=== PATIENT | female | born 1950 | race Caucasian/White ===

== ENCOUNTER 2016-05-12 12:45 | Emergency (ER) | payer SELFPAY ==
[~2016-05-12] VITALS: Ht 160 cm; Wt 68.5 kg
[2016-05-12 12:49] VITALS: Ht 160 cm; Wt 68.5 kg
[2016-05-12] MEDS ORDERED: SOD CHLORIDE 0.9% 500 ML IV STA (19:03)
[2016-05-12] MEDS ORDERED: ACETAMINOPHEN 325 MG TAB PO ONE (19:30)
[2016-05-12] MEDS ORDERED: morphine 2 MG INJ IV ONE (19:30)
[2016-05-12 19:46] LABS: ADD UMIC YES; URINE BILIRUBIN (Dip) NEGATIVE (NEGATIVE); URINE BLOOD (Dip) 3+ (NEGATIVE); URINE COLOR LT. YELLOW (YELLOW); URINE GLUCOSE (Dip) NEGATIVE (NEGATIVE); URINE KETONES (Dip) NEGATIVE (NEGATIVE); URINE LEUKOCYTE ESTERASE (Dip) 1+ (NEGATIVE); URINE NITRITE (Dip) NEGATIVE (NEGATIVE); URINE TOTAL PROTEIN (Dip) NEGATIVE (NEGATIVE); URINE UROBILINOGEN (Dip) 0.2 E.U./dL (0.1-1.0)
--- NOTE | 2016-05-12 19:46 | RADRPT ---
PROCEDURE: CT Brain without contrast. CLINICAL INDICATION: Headaches status post fall TECHNIQUE: A CT of the brain was performed on a GE ProspXpeAdhere2Care 64-slice CT scanner utilizing axial imaging from the skull base through the vertex without IV contrast. Multiplanar reformatted images were made. Images were reviewed on a PACS workstation. The CTDIvol is 45.01 mGy and the DLP is 720 .03 mGycm. One of the following 3 dose reduction techniques were used: Automated exposure control; adjustment of the mA and/or kV according to patient size; or use of iterative reconstruction technique. COMPARISON: None FINDINGS: There is no intracranial hemorrhage, mass effect, or midline shift. No extra-axial fluid collection is seen. The ventricles and sulci are normal in size and configuration. The density of the brain is normal, and the hartley white matter differentiation appears well-preserved. Minimal vascular calcific ations are present of the bilateral intracranial internal carotid arteries. The visualized scalp and calvarium are normal. The bilateral orbits are normal. The bilateral para nasal sinuses, mastoid air cells and middle ear cavities are clear. IMPRESSION: 1. No evidence of acute intracranial hemorrhage, infarcts, or acute intracranial pathology. 2. Minimal atherosclerotic vascular disease RPTAT: HDC .Maritza Washington MD, MD Date Time Electronically viewed and signed by .Maritza Washington MD, on 05/12/2016 19:46 .C/
--- NOTE | 2016-05-12 19:52 | RADRPT ---
PROCEDURE: XR Chest. CLINICAL INDICATION: Chest pain. TECHNIQUE: Single frontal view. COMPARISON: None. FINDINGS: The lungs are clear. The heart size is normal. There is no pleural effusion. There is no pneumothorax. IMPRESSION: 1. Normal chest radiograph. RPTAT: QQ .Ruben Bocanegra MD, Date Time Electronically viewed and signed by .Ruben Bocanegra MD, on 05/12/2016 19:52 .R/
--- NOTE | 2016-05-12 19:53 | RADRPT ---
PROCEDURE: Left wrist radiographs. CLINICAL INDICATION: Trauma due to a fall. Left wrist pain. TECHNIQUE: Four views. Frontal, lateral, and obliques. COMPARISON: No prior studies are available for comparison. FINDINGS: There is an acute minimally displaced transverse fracture through the distal metaphysis of the radiu s. There is no other fracture and there is no dislocation. There is diffuse soft tissue swelling overlying the fracture. Articular surfaces are intact. There is no lytic or blastic lesion. There is no radiopaque foreign body. IMPRESSION: 1. Acute mildly displaced transverse fracture through the distal metaphysis of the radius. 2. Overlying soft tissue swelling. 3. Otherwise normal images of the left wrist. RPTAT: QQ .Ruben Bocanegra MD, MD Date Time Electronically viewed and signed by .Ruben Bocanegra MD, on 05/12/2016 19:53 .R/
[2016-05-12 19:56] LABS: BACTERIA,URINE FEW
[2016-05-12 20:12] LABS: BASOPHILS % 0.5 % (0.0-2.0); EOSINOPHILS # 0.1 10^3/ul (0.0-0.5); EOSINOPHILS % 0.9 % (0.0-7.0); HEMATOCRIT 44.3 % (37.0-47.0); HEMOGLOBIN 15.2 g/dl (12.0-16.0); LYMPHOCYTES # 2.1 10^3/ul (0.8-2.9); LYMPHOCYTES % 31.6 % (15.0-51.0); MEAN CORPUSCULAR HEMOGLOBIN 30.6 pg (29.0-33.0); MEAN CORPUSCULAR HGB CONC 34.3 g/dl (32.0-37.0); MEAN CORPUSCULAR VOLUME 89.3 fl (82.0-101.0); MEAN PLATELET VOLUME 7.5 fl (7.4-10.4); MONOCYTE # 0.6 10^3/ul (0.3-0.9); MONOCYTES % 8.8 % (0.0-11.0); NEUTROPHIL # 3.9 10^3/ul (1.6-7.5); NEUTROPHILS % 58.2 % (39.0-77.0); PLATELET COUNT 273 10^3/UL (140-440); RED BLOOD COUNT 4.97 10^6/ul (4.20-5.40); RED CELL DISTRIBUTION WIDTH 13.2 % (11.5-14.5); UNCORRECTED WBC 6.7 10^3/ul (4.8-10.8); WHITE BLOOD COUNT 6.7 10^3/ul (4.8-10.8)
[2016-05-12 20:17] LABS: CONDITION 1
[2016-05-12 20:19] LABS: CHLORIDE 103 mmol/L (97-110); SODIUM 144 mmol/L (135-144)
[2016-05-12 20:20] LABS: PROTIME 13.2 Sec (12.2-14.2)
[2016-05-12 20:21] LABS: PARTIAL THROMBOPLASTIN TIME 26.5 Sec (25.0-35.0)
[2016-05-12 20:22] LABS: ANION GAP 16 (8-16); CARBON DIOXIDE 29 mmol/L (21-31); CREATININE 0.58 mg/dl (0.44-1.00)
[2016-05-12 20:23] LABS: BLOOD UREA NITROGEN 14 mg/dl (7-20); CALCIUM 9.4 mg/dl (8.4-10.2); GLUCOSE 110 mg/dl (70-220)
[2016-05-12 20:36] LABS: TROPONIN-I < 0.012 ng/ml (0.00-0.12)
[2016-05-12] MEDS ORDERED: HYDR-906 PO (21:01)
[2016-05-12] MEDS ORDERED: NITR-58 PO (21:01)
[2016-05-12] MEDS ORDERED: IBUP-1542 PO (21:01)
[2016-05-12] MEDS ORDERED: CIPR500T4 PO (21:01)
--- NOTE | 2016-05-12 21:18 | ERD ---
ER Documentation Chief Complaint Date/Time DATE: 05/12/16 TIME: 21:04 Chief Complaint CAME IN VIA INTAKE DUE TO FALL 3 DAYS AGO WITH CONFUSION AND WRIST PAIN HPI This 66-year-old female presents emergency room with her daughter for a fall 3 days ago in which she slipped on water in the rain and landed with her left wrist extended and hit the back of her head. She has no neck pain but she does have pain in the posterior scalp region as well as wrist pain when she tries to use her wrist at all. Yesterday she felt somewhat dizzy and lightheaded. Today she does not have any symptoms except for the wrist pain and a slight head pain. She is not taking any blood thinners except for an 81 mg aspirin. She has not had any fevers chills or dysuria lately. No chest pain or shortness of breath ROS All systems reviewed and are negative except as per history of present illness. Medications Home Meds Active Scripts Nitrofurantoin Monohyd Macrocr* (Macrobid*) 100 Mg Capsr, 100 MG PO BID, #6 CAP Prov:MECHEHARRIET DO 05/12/16 Ciprofloxacin Hcl* (Ciprofloxacin Hcl*) 500 Mg Tablet, 500 MG PO BID for 7 Days , TAB Prov:MECHEHARRIET DO 05/12/16 Ibuprofen* (Motrin*) 600 Mg Tab, 600 MG PO Q6H Y for PAIN AND OR ELEVATED TEMP, #30 TAB Prov:MECHEHARRIETERVIN COUGHLIN 05/12/16 Hydrocodone/Acetaminophen (Goodwell 5-325 Tablet) 1 Each Tablet, 1 EACH PO Q6 for SEVERE PAIN LEVEL 7-10, #7 TAB Prov:MECHEHARRIETERVIN COUGHLIN 05/12/16 PMhx/Soc History of Surgery: Yes (right knee sx) Anesthesia Reaction: No Hx Neurological Disorder: No Hx Respiratory Disorders: No Hx Cardiac Disorders: Yes (HTN) Hx Psychiatric Problems: No Hx Miscellaneous Medical Probl: No Hx Alcohol Use: No Hx Substance Use: No Hx Tobacco Use: No Smoking Status: Never smoker Physical Exam Vitals Vital Signs Date Time Temp Pulse Resp B/P Pulse Ox O2 Delivery O2 Flow Rate FiO2 05/12/16 12:49 99.8 87 18 178/88 95 Physical Exam Const: [] No distress Head: Slight swelling in the area of the right occiput with mild tenderness, no deformities or bleeding. Eyes: Normal Conjunctiva, EOMI, PERRLA ENT: Normal External Ears, Nose and Mouth. Neck: Full range of motion..~ No meningismus. Resp: Clear to auscultation bilaterally Cardio: Regular rate and rhythm, no murmurs Abd: Soft, non tender, non distended. Normal bowel sounds Skin: No petechiae or rashes Back: No midline or flank tenderness Ext: No cyanosis, some swelling of left wrist with tenderness to palpation about the dorsal mid wrist, no snuffbox tenderness, purpuric discoloration. Distal pulses and capillary refill intact. Neur: Awake and alert and oriented 3, no focal deficits, cranial nerves II through XII intact, normal gait Psych: Normal Mood and Affect Result Diagram: 05/12/16194905/12/161949 Results 24 hrs Laboratory Tests Test 05/12/16 19:31 05/12/16 19:50 Urine Bacteria FEW Urine Bilirubin NEGATIVE Urine Clarity CLEAR Urine Color LT. YELLOW Urine Epithelial Cells FEW Urine Glucose NEGATIVE% Urine Hemoglobin 3+ Urine Ketones NEGATIVE Urine Leukocyte Esterase 1+ Urine Microscopic RBC 10-25/HPF Urine Microscopic WBC 2-5/HPF Urine Nitrite NEGATIVE Urine Specific [place] 1.025 Urine Total Protein NEGATIVE Urine Urobilinogen 0.2 E.U./dL Urine pH 6.0 Activated Partial Thromboplast Time 26.5Sec Anion Gap 16 Basophils # 0.010^3/ul Basophils % 0.5% Blood Urea Nitrogen 14mg/dl Calcium Level 9.4mg/dl Carbon Dioxide Level 29mmol/L Chloride Level 103mmol/L Creatinine 0.58mg/dl Eosinophils # 0.110^3/ul Eosinophils % 0.9% Glucose Level 110mg/dl Hematocrit 44.3% Hemoglobin 15.2g/dl INR International Normalized Ratio 1.00 Lymphocytes # 2.110^3/ul Lymphocytes % 31.6% Mean Corpuscular Hemoglobin 30.6pg Mean Corpuscular Hemoglobin Concent 34.3g/dl Mean Corpuscular Volume 89.3fl Mean Platelet Volume 7.5fl Monocytes # 0.610^3/ul Monocytes % 8.8% Neutrophils # 3.910^3/ul Neutrophils % 58.2% Nucleated Red Blood Cells # 0.010^3/ul Nucleated Red Blood Cells % 0.0/100WBC Platelet Count 85461^3/UL Potassium Level 4.0mmol/L Prothrombin Time 13.2Sec Prothrombin Time Ratio 1.0 Red Blood Count 4.9710^6/ul Red Cell Distribution Width 13.2% Sodium Level 144mmol/L Troponin I < 0.012ng/ml White Blood Count 6.710^3/ul Current Medications Medications (Trade) Dose Ordered Sig/Jason Route PRN Reason Start Time Stop Time Status Last Admin Dose Admin Sodium Chloride (NS) 500 ml @ 500 mls/hr Q1H STAT IV 05/12/16 19:03 05/12/16 20:02 DC Acetaminophen (Tylenol Tab) 650 mg ONCE ONCE PO 05/12/16 19:30 05/12/16 19:31 DC 05/12/16 20:59 Morphine Sulfate (morphine) 2 mg ONCE ONCE IV 05/12/16 19:30 05/12/16 19:31 DC Procedures/MDM Mechanical fall and 66-year-old female with head injury and intra-articular distal radius fracture. Patient also has urinary tract infection which may explain her dizziness and lightheadedness. Head CT is negative for hemorrhage and the patient is alert oriented virtually asymptomatic today except for fracture and fully ambulatory. C-spine is cleared through Nexus criteria. She was given Tylenol for pain in the emergency room. I am going to discharge her with Goodwell for severe pain as well as ibuprofen, orthopedic follow-up through her primary care doctor and strict return precautions to the ER for any concerning changes. No signs of serious infection. EKG interpretation: Normal sinus rhythm rate of 76, normal axis, no ST or T- wave changes concerning for acute ischemia. security monitor interpretation: Normal sinus rhythm without arrhythmia Chest x-ray interpretation: No acute process, no widened mediastinum or pneumothorax no hemothorax, no acute fractures Brain CT interpretation: I see no acute process, no hemorrhage no mass-effect or midline shift no fracture Right wrist x-ray interpretation: Transverse fracture of the metathesis of the medial distal radius with slight displacement. No other fractures or dislocations seen. Departure Diagnosis: Primary Impression: UTI (urinary tract infection) Additional Impressions: Distal radius fracture Head injury Condition: Stable Patient Instructions: Treating Wrist Fractures, Understanding Urinary Tract Infections (UTIs), HEAD INJURY, No Wake-Up (Adult) Referrals: COMMUNITY CLINICS YOU HAVE RECEIVED A MEDICAL SCREENING EXAM AND THE RESULTS INDICATE THAT YOU DO NOT HAVE A CONDITION THAT REQUIRES URGENT TREATMENT IN THE EMERGENCY DEPARTMENT. FURTHER EVALUATION AND TREATMENT OF YOUR CONDITION CAN WAIT UNTIL YOU ARE SEEN IN YOUR DOCTORS OFFICE WITHIN THE NEXT 1-2 DAYS. IT IS YOUR RESPONSIBILITY TO MAKE AN APPOINTMENT FOR FOLOW-UP CARE. IF YOU HAVE A PRIMARY DOCTOR --you should call your primary doctor and schedule an appointment IF YOU DO NOT HAVE A PRIMARY DOCTOR YOU CAN CALL OUR PHYSICIAN REFERRAL HOTLINE AT IF YOU CAN NOT AFFORD TO SEE A PHYSICIAN YOU CAN CHOSE FROM THE FOLLOWING [facility] CLINICS [facility] [address] [facility] [address] [facility] [facility] [address] [facility] [address] [facility] [address] [facility]. [facility]. [address] Additional Instructions: Llame al doctor MAANA y renee kenny MATIAS PARA DENTRO DE 2-3 THOMAS.Dgale a la secretaria que nosotros le instruimos hacer esta matias.Avise o llame si doe condicin se empeora antes de la matias. Regresa aqui si peor o no mejor. HARRIET MCGREGOR DO May 12, 2016 21:15
[2016-05-12 21:29] VITALS: BP 135/66; PULSE 80; RESP 18; TEMP 98
== END 2016-05-12 21:31 | disposition home or self-care (01) ==
LOC: E/R 12:45
DX: S52.599A Other fractures of lower end of unspecified radius, initial encounter for closed fracture (principal); S09.90XA Unspecified injury of head, initial encounter; N39.0 Urinary tract infection, site not specified; I10 Essential (primary) hypertension; R40.2142 Coma scale, eyes open, spontaneous, at arrival to emergency department; R40.2252 Coma scale, best verbal response, oriented, at arrival to emergency department; R40.2362 Coma scale, best motor response, obeys commands, at arrival to emergency department; R51 Headache; R07.9 Chest pain, unspecified; W01.198A Fall on same level from slipping, tripping and stumbling with subsequent striking against other object, initial encounter; Y92.9 Unspecified place or not applicable
CPT/HCPCS: 29125; 36415; 70450; 71010; 73110; 80048; 81001; 84484; 85025; 85610; 85730; 93005; 99285; J7040; 81003

== ENCOUNTER 2016-07-18 04:50 | Emergency (ER) | payer MEDICAID ==
[~2016-07-18] VITALS: Ht 162.6 cm; Wt 69.5 kg
[~2016-07-18 04:50] MED LIST: CIPR500T4 PO; HYDR-906 PO; IBUP-1542 PO; NITR-58 PO
[2016-07-18 04:54] VITALS: Ht 162.6 cm; Wt 69.5 kg
[2016-07-18 06:20] VITALS: BP 141/82; PULSE 89; RESP 20; TEMP 97
[2016-07-18] MEDS ORDERED: LORA1TAB PO (06:29)
--- NOTE | 2016-07-18 06:33 | ERD ---
ER Documentation Chief Complaint Date/Time DATE: 07/18/16 TIME: 06:31 Chief Complaint Insomnia HPI This is a 66-year-old female who is here for insomnia. She states she has had a difficult time sleeping off and on over the past couple of weeks. She says that she is tried taking Xanax 0.5 mg without any relief. She says she feels very tired and weak because she is not sleeping well. No headache chest pain abdominal pain shortness of breath nausea vomiting diarrhea. She says she has difficult time falling and staying asleep ROS All systems reviewed and are negative except as per history of present illness. Medications Home Meds Active Scripts Lorazepam* (Lorazepam*) 1 Mg Tablet, 1 MG PO QHS, #15 TAB Prov:AISSATOU BAILEY DO 07/18/16 Nitrofurantoin Monohyd Macrocr* (Macrobid*) 100 Mg Capsr, 100 MG PO BID, #6 CAP Prov:MECHEHARRIET DO 05/12/16 Ciprofloxacin Hcl* (Ciprofloxacin Hcl*) 500 Mg Tablet, 500 MG PO BID for 7 Days , TAB Prov:MECHEHARRIET DO 05/12/16 Ibuprofen* (Motrin*) 600 Mg Tab, 600 MG PO Q6H Y for PAIN AND OR ELEVATED TEMP, #30 TAB Prov:MECHEHARRIET DO 05/12/16 Hydrocodone/Acetaminophen ([place] 5-325 Tablet) 1 Each Tablet, 1 EACH PO Q6 for SEVERE PAIN LEVEL 7-10, #7 TAB Prov:HARRIET MCGREGOR DO 05/12/16 Allergies Allergies: Coded Allergies: No Known Drug Allergies (Verified Allergy, Unknown, 07/18/16) PMhx/Soc History of Surgery: Yes (right knee sx) Anesthesia Reaction: No Hx Neurological Disorder: No Hx Respiratory Disorders: No Hx Cardiac Disorders: Yes (HTN) Hx Psychiatric Problems: No Hx Miscellaneous Medical Probl: No Hx Alcohol Use: No Hx Substance Use: No Hx Tobacco Use: No Smoking Status: Never smoker FmHx Family History: No coronary disease Physical Exam Vitals Vital Signs Date Time Temp Pulse Resp B/P Pulse Ox O2 Delivery O2 Flow Rate FiO2 07/18/16 06:20 97.0 89 20 141/82 97 Room Air 07/18/16 04:54 97.0 77 20 164/78 97 Physical Exam Const: Well-developed, well-nourished Head: Atraumatic, normocephalic Eyes: Normal Conjunctiva, PERRLA, EOMI, normal sclera, no nystagmus ENT: Normal External Ears, Nose and Mouth, moist mucus membranes. Neck: Full range of motion. No meningismus, no lymphadenopathy. Resp: Clear to auscultation bilaterally, no wheezing, rhonchi, rales Cardio: Regular rate and rhythm, no murmurs, S1 S2 present Abd: Soft, non tender x 4, non distended. Normal bowel sounds, no guarding or rebound, no pulsitile abdominal masses or bruits Skin: No petechiae or rashes, no ecchymosis , no maculopapular rash Back: No midline or flank tenderness Ext: No cyanosis, or edema, FROM x 4, normal inspection, neurovascularly intact x 4 Neur: Awake and alert, STR 5/5 x 4, sensation intact x 4, no focal findings, cerebellum intact Psych: Normal Mood and Affect Departure Diagnosis: Primary Impression: Insomnia Insomnia type: other insomnia Qualified Code: G47.09 - Other insomnia Condition: Stable Patient Instructions: Treating Insomnia, Insomnia AISSATOU BAILEY DO Jul 18, 2016 06:33
== END 2016-07-18 06:35 | disposition home or self-care (01) ==
LOC: E/R 04:50
DX: G47.09 Other insomnia (principal); I10 Essential (primary) hypertension
CPT/HCPCS: 99283

== ENCOUNTER 2016-09-22 23:30 | Emergency (ER) | END 2016-09-23 00:11 | disposition home or self-care (01) | DX: F51.05 Insomnia due to other mental disorder (principal); F41.9 Anxiety disorder, unspecified; I10 Essential (primary) hypertension ==

== ENCOUNTER 2016-12-12 05:36 | Emergency (ER) | payer MEDICAID ==
[~2016-12-12] VITALS: Ht 160 cm; Wt 68.5 kg
[~2016-12-12 05:36] MED LIST changes: +LORA1TAB PO
[2016-12-12 05:47] VITALS: Ht 160 cm; Wt 68.5 kg
[2016-12-12] MEDS ORDERED: ALPR1TAB2 PO (06:17)
[2016-12-12] MEDS ORDERED: BEN50 PO (06:17)
[2016-12-12] MEDS ORDERED: ONDANSETRON (ODT) 4 MG TAB ODT ONE (06:30)
--- NOTE | 2016-12-12 06:56 | ERD ---
ER Documentation Chief Complaint Date/Time DATE: 12/12/16 TIME: 06:49 Chief Complaint INSOMNIA & ANXIETY X2WKS, HAS RX FO AMBIEN & ATIVAN BUT "NOT HELPING". MCCAIN. HPI 66-year-old female complaining of insomnia and anxiety. Patient states that her symptoms are the same as her normal anxiety. She denies any chest pains or trouble breathing. She states she normally takes Ativan however she feels it is not helping and would like a new medication. Patient states that she has no new additional stressors. She denies any suicidal or homicidal ideations. States she has a safe place to live. ROS All systems reviewed and are negative except as per history of present illness. Medications Home Meds Active Scripts Diphenhydramine Hcl* (Benadryl*) 50 Mg Cap, 50 MG PO Q6 Y for ITCHING, #30 CAP Prov:GARDENIA LINDSAY PA-C 12/12/16 Alprazolam* (Xanax*) 1 Mg Tab, 1 MG PO Q8H Y for ANXIETY, #10 TAB Prov:GARDENIA LINDSAY PA-C 12/12/16 Lorazepam* (Lorazepam*) 1 Mg Tablet, 1 MG PO QHS, #15 TAB Prov:AISSATOU BAILEY DO 07/18/16 Nitrofurantoin Monohyd Macrocr* (Macrobid*) 100 Mg Capsr, 100 MG PO BID, #6 CAP Prov:HARRIET MCGREGOR DO 05/12/16 Ciprofloxacin Hcl* (Ciprofloxacin Hcl*) 500 Mg Tablet, 500 MG PO BID for 7 Days , TAB Prov:HARRIET MCGREGOR DO 05/12/16 Ibuprofen* (Motrin*) 600 Mg Tab, 600 MG PO Q6H Y for PAIN AND OR ELEVATED TEMP, #30 TAB Prov:HARRIET MCGREGOR DO 05/12/16 Hydrocodone/Acetaminophen ([place] 5-325 Tablet) 1 Each Tablet, 1 EACH PO Q6 for SEVERE PAIN LEVEL 7-10, #7 TAB Prov:HARRIET MCGREGOR DO 05/12/16 Allergies Allergies: Coded Allergies: No Known Drug Allergies (Verified Allergy, Unknown, 07/18/16) PMhx/Soc History of Surgery: Yes (right knee sx; X1) Anesthesia Reaction: No Hx Neurological Disorder: No Hx Respiratory Disorders: No Hx Cardiac Disorders: Yes (HTN) Hx Psychiatric Problems: No Hx Miscellaneous Medical Probl: Yes (ANXIETY AND INSOMNIA X 2 WKS.) Hx Alcohol Use: No Hx Substance Use: No Hx Tobacco Use: No Smoking Status: Never smoker Physical Exam Vitals Vital Signs Date Time Temp Pulse Resp B/P Pulse Ox O2 Delivery O2 Flow Rate FiO2 12/12/16 05:47 98.1 66 18 173/86 100 Physical Exam GENERAL: The patient is well-appearing, well-nourished, in no acute distress CHEST: Clear to auscultation bilaterally. There are no rales, wheezes or rhonchi. HEART: Regular rate and rhythm. No murmurs, clicks, rubs or gallops. No S3 or S4. SKIN: There is no apparent rash or petechiae. The skin is warm and dry. Results 24 hrs Current Medications Medications (Trade) Dose Ordered Sig/Jason Route PRN Reason Start Time Stop Time Status Last Admin Dose Admin Ondansetron HCl (Zofran Odt) 4 mg STK-MED ONCE ODT 12/12/16 06:30 12/12/16 06:31 DC Procedures/MDM MDM: 66-year-old female coming in complaining of anxiety. I have low suspicion for cardiac emergency or neuro deficits. Patient exam is within normal limits and patient states that these anxiety symptoms are the same as her normal anxiety and insomnia symptoms. Patient does not describe thoughts of hurting herself or others I do not feel that a psych evaluation is indicated at today's visit. I will discharge patient with antianxiety medications and recommend close follow-up with primary care within 1-2 days for close evaluation. Patient is told if symptoms change or worsen to return to the ER immediately. Patient understood and complied with plan. Departure Diagnosis: Primary Impression: Anxiety Condition: Stable Patient Instructions: Anxiety Reaction Referrals: COMMUNITY CLINICS YOU HAVE RECEIVED A MEDICAL SCREENING EXAM AND THE RESULTS INDICATE THAT YOU DO NOT HAVE A CONDITION THAT REQUIRES URGENT TREATMENT IN THE EMERGENCY DEPARTMENT. FURTHER EVALUATION AND TREATMENT OF YOUR CONDITION CAN WAIT UNTIL YOU ARE SEEN IN YOUR DOCTORS OFFICE WITHIN THE NEXT 1-2 DAYS. IT IS YOUR RESPONSIBILITY TO MAKE AN APPOINTMENT FOR FOLOW-UP CARE. IF YOU HAVE A PRIMARY DOCTOR --you should call your primary doctor and schedule an appointment IF YOU DO NOT HAVE A PRIMARY DOCTOR YOU CAN CALL OUR PHYSICIAN REFERRAL HOTLINE AT IF YOU CAN NOT AFFORD TO SEE A PHYSICIAN YOU CAN CHOSE FROM THE FOLLOWING [facility] CL[facility] [address] [facility] [address] [facility] [address] [facility] [address] [facility] [address] [facility]. [facility]. [address] Additional Instructions: FOLLOW UP WITH YOUR PRIMARY CARE PHYSICIAN TOMORROW.Return to this facility if you are not improving as expected. GARDENIA LINDSAY PA-C Dec 12, 2016 06:56
== END 2016-12-12 06:35 | disposition home or self-care (01) ==
LOC: FTE 05:36
DX: F41.9 Anxiety disorder, unspecified (principal); I10 Essential (primary) hypertension
CPT/HCPCS: Z7502; Z7610; 99283

== ENCOUNTER 2018-07-10 17:09 | Emergency (ER) | payer MEDICAID ==
[~2018-07-10] VITALS: Ht 157.5 cm; Wt 67.1 kg
[~2018-07-10 17:09] MED LIST changes: +ALPR1TAB2 PO; +BEN50 PO; +HYDR-4011 PO; -HYDR-906 PO
[2018-07-10 17:21] VITALS: Ht 157.5 cm; Wt 67.1 kg
[2018-07-10] MEDS ORDERED: ACETAMINOPHEN 325 MG TAB PO ONE (18:30)
[2018-07-10] MEDS ORDERED: CEFU500T45 PO (19:21)
[2018-07-10] MEDS ORDERED: POLY15DR13 OP (19:21)
--- NOTE | 2018-07-10 19:24 | ERD ---
ER Documentation Chief Complaint Chief Complaint pt has right eye redness denies pain a&o x4 HPI 68-year-old female presents with redness in the right eye last day. She did have a viral URI last week. She denies visual field deficits or visual changes except for some mild blurriness. She has a right-sided headache as well. Patient has a history of hypertension. ROS All systems reviewed and are negative except as per history of present illness. Medications Home Meds Active Scripts Polyvinyl Alcohol/Povidone (Artificial Tears Drops) 15 Ml Drops, 15 ML OP QID for 10 Days, BOTTLE 2 drops 4 times a day right eye for 10 days. Prov:DANNY GARDNER MD 07/10/18 Cefuroxime Axetil* (Cefuroxime Axetil*) 500 Mg Tablet, 500 MG PO BID for 10 Days, TAB Prov:DANNY GARDNER MD 07/10/18 Diphenhydramine Hcl* (Benadryl*) 50 Mg Cap, 50 MG PO Q6 PRN for ITCHING, #30 CAP Prov:GARDENIA LINDSAY PA-C 12/12/16 Alprazolam* (Xanax*) 1 Mg Tab, 1 MG PO Q8H PRN for ANXIETY, #10 TAB Prov:GARDENIA LINDSAY PA-C 12/12/16 Lorazepam* (Lorazepam*) 1 Mg Tablet, 1 MG PO QHS, #15 TAB Prov:AISSATOU BAILEY DO 07/18/16 Nitrofurantoin Monohyd Macrocr* (Macrobid*) 100 Mg Capsr, 100 MG PO BID, #6 CAP Prov:HARRIET MCGREGOR DO 05/12/16 Ciprofloxacin Hcl* (Ciprofloxacin Hcl*) 500 Mg Tablet, 500 MG PO BID for 7 Days, TAB Prov:HARRIET MCGREGOR DO 05/12/16 Ibuprofen* (Motrin*) 600 Mg Tab, 600 MG PO Q6H PRN for PAIN AND OR ELEVATED TEMP, #30 TAB Prov:HARRIET MCGREGOR DO 05/12/16 Hydrocodone/Acetaminophen ([place] 5-325 Tablet) 1 Each Tablet, 1 EACH PO Q6 for SEVERE PAIN LEVEL 7-10, #7 TAB Prov:HARRIET MCGREGOR DO 05/12/16 Allergies Allergies: Coded Allergies: No Known Drug Allergies (Verified Allergy, Unknown, 07/10/18) PMhx/Soc History of Surgery: Yes (right knee sx; X1) Anesthesia Reaction: No Hx Neurological Disorder: No Hx Respiratory Disorders: No Hx Cardiac Disorders: Yes (HTN) Hx Psychiatric Problems: No Hx Miscellaneous Medical Probl: No Hx Alcohol Use: No Hx Substance Use: No Hx Tobacco Use: No Smoking Status: Never smoker FmHx Family History: No diabetes, No coronary disease, No other Physical Exam Vitals Vital Signs Date Temp Pulse Resp B/P (MAP) Pulse Ox O2 O2 Flow FiO2 Time Delivery Rate 07/10/18 98.6 76 18 152/62 100 17:21 (92) Physical Exam Const: No acute distress Head: Atraumatic Eyes: Right eye large subconjunctival hemorrhage encompassing 2:00 to 9:00. Eyes Ezio and extraocular movements intact. Intra-chambers grossly normal. No periorbital swelling or proptosis. Visual acuity shows no acute abnormalities and is actually better in the affected eye than the unaffected eye. ENT: Normal External Ears, Nose and Mouth. Neck: Full range of motion. No meningismus. Resp: Clear to auscultation bilaterally Cardio: Regular rate and rhythm, no murmurs Abd: Soft, non tender, non distended. Normal bowel sounds Skin: No petechiae or rashes Back: No midline or flank tenderness Ext: No cyanosis, or edema Neur: Awake and alert Psych: Normal Mood and Affect Results 24 hrs Current Medications Medications Dose Sig/Jason Start Time Status Last (Trade) Ordered Route PRN Stop Time Admin Dose Reason Admin 650 mg ONCE ONCE 07/10/18 DC 07/10/18 Acetaminophen PO 18:30 18:25 (Tylenol 07/10/18 18:31 Tab) Procedures/MDM Patient presents with a quite a large right eye subconjunctival hemorrhage. Patient has a right-sided headache as well. She has a history of hypertension. Patient is concerned about intracranial abnormalities. Given degree of symptoms and patient concerned CT brain and orbits was performed which shows maxillary sinusitis describes as acute by radiology. Patient has a right occipital hemorrhage likely due to coughing possibly from sinusitis. She will be treated with Ceftin, artificial tears, recommendations for primary care follow-up and ophthalmology evaluation. Patient shows no signs or symptoms to suggest visual changes, visual deficits, intracranial bleeding, additional concerning signs or symptoms. Patient has no signs or symptoms of visual changes, visual field deficits. There are no signs or symptoms to suggest orbital cellulitis, retinal detachment, optic neuritis, retinal artery ischemia, dendritic lesions, ulcers, threats to vision or additional eye emergencies. Doubt acute glaucoma. Patient will be discharged home with recommendations for primary care and ophthalmology follow-up within the next 1-2 days. They should otherwise return to the ER for persistent or worsening symptoms. Departure Diagnosis: Primary Impression: Sinusitis Additional Impression: Subconjunctival hemorrhage Laterality: right Qualified Codes: H11.31 - Conjunctival hemorrhage, right eye Condition: Stable Patient Instructions: Sinusitis, Abx Tx, Subconjunctival Hemorrhage Referrals: [facility] Hours: Thu - Thu 9:00 AM - 5:00 PM Additional Instructions: cerebro y ousmane normal. ct dice tiene sinusitis y vamos a tratar. . Cheque otro vez con doe doctor primario en el proximo tony or regresa para mas o nueva simptomas. Va al doe doctor/ specialista para mas evaluacon en el proximo semana. posiblemente necesita autorizado de doe doctor primario para specialista. Regresa para fiebre, o mas o nueva simptomas. DANNY GARDNER MD Jul 10, 2018 19:24
[2018-07-10 19:36] VITALS: BP 138/66; PULSE 76; RESP 18
== END 2018-07-10 19:37 | disposition home or self-care (01) ==
LOC: FTE 17:09
DX: J32.9 Chronic sinusitis, unspecified (principal); I10 Essential (primary) hypertension; H11.31 Conjunctival hemorrhage, right eye; R51 Headache
CPT/HCPCS: 70450; 70480; Z7502; Z7610